=== PATIENT | female | born 1990 | race Two or more races ===

== ENCOUNTER 2023-01-21 10:00 | Outpatient (CLI) | payer OTHER | END 2023-01-21 10:15 | disposition home or self-care (01) | LOC: PPH VACUNA 10:00 | PROVIDERS: ATTEND Emergency Medicine Pediatric Emergency Medicine | DX: Z23 Encounter for immunization (principal) ==

== ENCOUNTER 2023-05-18 13:27 | Emergency (ER) | payer OTHER ==
[~2023-05-18] VITALS: Ht 149.9 cm; Wt 59.0 kg
== END 2023-05-18 16:38 | disposition home or self-care (01) ==
LOC: ER 13:27
DX: U07.1 COVID-19 (principal); J06.9 Acute upper respiratory infection, unspecified; R53.81 Other malaise